=== PATIENT | female | born 1995 ===

== ENCOUNTER → 2017-09-07 | Outpatient (CLI) | payer OTHER ==
[2017-09-07 13:37] LABS: PLATELET COUNT, AUTOMATED 275 K/uL (150-450)
== END ==
LOC: LAB 12:52
PROVIDERS: ATTEND Internal Medicine Allergy & Immunology
DX: J01.01 Acute recurrent maxillary sinusitis (principal); J32.9 Chronic sinusitis, unspecified
CPT/HCPCS: 36415; 82040; 82247; 82310; 82374; 82435; 82565; 82784; 82785; 82947; 84075; 84132; 84155; 84295; 84439; 84443; 84450; 84460; 84520; 85025; 85651; 86038; 86039

== ENCOUNTER 2017-10-21 00:56 | Day surgery (SDC) | payer OTHER ==
[2017-10-21] VITALS (8 sets, daily range): BP systolic 117–134; BP diastolic 67–89
[~2017-10-21] VITALS: Ht 162.6 cm; Wt 64.9 kg
[~2017-10-21 00:56] MED LIST: ESCI20TA38 PO; FEXO1TAB63 PO; MONT10TA PO; allergy injections IJ
[2017-10-21 07:48] LABS: PLATELET COUNT, AUTOMATED 283 K/uL (150-450)
[2017-10-21] MEDS ORDERED: LIDOCAINE/SOD BICARB 8.4% SYR ID ONE (08:00)
[2017-10-21] MEDS ORDERED: ceFAZolin(*) 2GM/D5W 50ML 50 ML IVPB ONE (08:00)
[2017-10-21] MEDS ORDERED: NORMOSOL R SOLN(*) 1000 ML BAG 1,000 ML IV PRN (08:00)
[2017-10-21] MEDS ORDERED: MIDAZOLAM 2 MG/2 ML VIAL IVP ONE (08:00)
[2017-10-21] MEDS ORDERED: FAMOTIDINE 20 MG TAB PO ONE (08:00)
[2017-10-21] MEDS ORDERED: BACITRACIN OINT 15 GM TUBE TP ONE (08:10)
[2017-10-21] MEDS ORDERED: LIDO/EPI 1% MDV 1:100,000 20ML INFIL ONE (08:10)
[2017-10-21] MEDS ORDERED: MUPIROCIN 2% OINT 22 GM TUBE TP ONE (08:10)
[2017-10-21] MEDS ORDERED: OXYMETAZOLINE SPRAY 15 ML BTL ONE (08:10)
[2017-10-21] MEDS ORDERED: NS(*) 0.9% 500 ML BAG 500 ML ONE (08:26)
[2017-10-21] MEDS ORDERED: MIDAZOLAM 2 MG/2 ML VIAL ONE (08:35)
[2017-10-21] MEDS ORDERED: KETAMINE HCL 200 MG/20 ML MDV ONE (08:35)
[2017-10-21] MEDS ORDERED: fentaNYL CITR 100 MCG/2 ML AMP ONE ×2 (08:35→09:49)
[2017-10-21] MEDS ORDERED: ONDANSETRON 4 MG/2 ML VIAL ONE (08:45)
[2017-10-21] MEDS ORDERED: HYDR-385 PO (09:55)
[2017-10-21] MEDS ORDERED: CEFU500T10 PO (09:56)
[2017-10-21] MEDS ORDERED: PROMETHAZINE 25 MG/ML 1 ML AMP ONE (10:00)
[2017-10-21] MEDS ORDERED: METOPROLOL TART 5 MG/5 ML VIAL ONE (10:15)
[2017-10-21] MEDS ORDERED: APAP/HYDROCODONE 325/5 TAB ONE (10:34)
--- NOTE | 2017-10-22 07:55 | OPERATIVE REPORT 1 ---
EVENT DATE: October 21, 2017 SURGEON: Grant Felton MD ANESTHESIOLOGIST: Wilder Hurtado M.D. ANESTHESIA: LMA. PREOPERATIVE DIAGNOSIS 1. Nasal septal deviation. 2. Bilateral inferior turbinate hypertrophy. POSTOPERATIVE DIAGNOSIS 1. Nasal septal deviation. 2. Bilateral inferior turbinate hypertrophy. PROCEDURE PERFORMED 1. Septoplasty. 2. Submucosal resection of the bilateral inferior turbinates. INDICATIONS Please refer to the preoperative note. PROCEDURE The patient was positively identified in the preoperative area. She was accompanied there by her and mother. Risks were again explained, including but not limited to bleeding, infection, nasal septal perforation, those associated with anesthesia. She acknowledged understanding of those risks. She was then brought back to the operative suite, laid supine on the operative table, and anesthesia was administered. Once asleep, the patient was positioned, then prepped and draped in usual sterile fashion. I initially decongested the nose by injecting approximately 10 mL of 1% lidocaine with epinephrine into the bilateral anterior nasal septal mucosa and along the face of the bilateral inferior turbinates. Both nasal cavities were subsequently packed with cottonoids containing Afrin solution. These were subsequently removed. A nasal endoscopy was performed. This was notable for a left inferior nasal septal deviation. A [place] incision was then made into the left anterior nasal septal mucosa. A subperichondrial flap was elevated. An incision was then made into the anterior nasal septal cartilage approximately 5 mm posterior to the original Riki incision. A contralateral flap was raised. The deviated portion of the nasal septal cartilage and bone was then removed. The incision was then reapproximated with interrupted Chromic stitch. I then addressed the inferior turbinates. A stab incision was made at the face of the left inferior turbinate. A caudal elevator was utilized to elevate the mucosa off the underlying bone. A submucosal resection was then performed with the turbinate blade of the microdebrider. The stab incision was then cauterized with suction Bovie electrocautery. The contralateral inferior turbinate was addressed in a similar fashion. Bilateral nasal septal splints were then placed and secured to the columella with a suture. The patient was then turned to anesthesia for emergence. ESTIMATED BLOOD LOSS 25 mL. COMPLICATIONS No complications. MTDD
== END 2017-10-21 10:45 | disposition home or self-care (01) ==
LOC: OR 00:56
PROVIDERS: ATTEND Otolaryngology
DX: J34.2 Deviated nasal septum (principal); J34.3 Hypertrophy of nasal turbinates; F32.9 Major depressive disorder, single episode, unspecified; F41.9 Anxiety disorder, unspecified
CPT/HCPCS: 30140; 30520; 36415; 84703; 85025; J2250; J2405; J2550; J3010; J3490; J7040; J0690